=== PATIENT | male | born 1970 | race Caucasian/White ===

== ENCOUNTER 2019-10-30 11:38 | Emergency (ER) | payer BC ==
--- NOTE | 2019-10-31 07:25 | EDPHYS ---
Physician Documentation [facility] Name: Keny Price Age: 49 yrs Sex: Male : 1970 Arrival Date: 10/30/2019 Time: 11:41 Bed 14 Private MD: ED Physician Yassine Rosales HPI: 10/29 12:06 This 49 yrs old Male presents to ER via Ambulatory with complaints of Nose pm1 Bleed. 12:06 The patient presents with a nose bleed, that is apparently posterior, from the left pm1 nare, occurred from an unknown cause, that is continuous causative factors include: possible exposure to dust at baseball field yesterday. Onset: The symptoms/episode began/occurred at 04:00. Modifying factors: The symptoms are alleviated by nothing. the symptoms are aggravated by nothing. Associated signs and symptoms: Loss of consciousness: the patient experienced no loss of consciousness, Pertinent negatives: blurred vision, chest pain, cough, fever, lightheadedness, rhinorrhea, vertigo. Severity of symptoms: in the emergency department the symptoms are unchanged. The patient has been recently seen by a physician: Patient was seen in [place] [facility] early this AM and had rhino packing placed. Patient reports that blood is still trickling down the back of his throat. He contacted his PCP and was instructed to report to the ER for evaluation because they are worried that it might be related to a stroke or aneurysm . Historical: - Allergies: 11:53 No Known Allergies; ll1 - Home Meds: 11:53 None [Active]; ll1 - PMHx: 11:53 None; ll1 - Immunization history:: Adult Immunizations up to date. - Social history:: Smoking status: Patient denies any tobacco usage or history of. ROS: 12:06 Constitutional: Negative for fever, chills, and weight loss, Eyes: Negative for injury, pm1 pain, redness, and discharge. 12:06 Neck: Negative for injury, pain, and swelling, Cardiovascular: Negative for chest pain, palpitations, and edema, Respiratory: Negative for shortness of breath, cough, wheezing, and pleuritic chest pain, Abdomen/GI: Negative for abdominal pain, nausea, vomiting, diarrhea, and constipation, Back: Negative for injury and pain, MS/Extremity: Negative for injury and deformity, Skin: Negative for injury, rash, and discoloration, Neuro: Negative for headache, weakness, numbness, tingling, and seizure. 12:06 ENT: Positive for nose bleed, Negative for drainage from ear(s), ear pain, sore throat, difficulty swallowing, difficulty handling secretions, hoarseness. Exam: 12:06 Constitutional: This is a well developed, well nourished patient who is awake, alert, pm1 and in no acute distress. Head/Face: Normocephalic, atraumatic. 12:06 Neck: Trachea midline, no thyromegaly or masses palpated, and no cervical lymphadenopathy. Supple, full range of motion without nuchal rigidity, or vertebral point tenderness. No Meningismus. 12:06 Skin: Warm, dry with normal turgor. Normal color with no rashes, no lesions, and no evidence of cellulitis. MS/ Extremity: Pulses equal, no cyanosis. Neurovascular intact. Full, normal range of motion. 12:06 ENT: External ear(s): are unremarkable, Ear canal(s): are normal, TM's: are normal, Nose: Nasal mucosa: edematous, bleeding, is not appreciated, is noted from both nares, nasal drainage, is not appreciated, a foreign body, is not appreciated. 12:06 Cardiovascular: Exam negative for acute changes, Rate: normal, Rhythm: regular, Pulses: no pulse deficits are appreciated. 12:06 Respiratory: Exam negative for acute changes, respiratory distress, shortness of breath. 12:06 Neuro: Exam negative for acute changes, Orientation: is normal, Mentation: is normal, Motor: is normal, moves all fours, Sensation: is normal, no obvious gross deficits, Gait: is steady, at a normal pace, without difficulty. Vital Signs: 11:49 BP 132 / 87; Pulse 81; Resp 16; Temp 98.0(O); Pulse Ox 98% on R/A; Weight 97.52 kg; ll1 Height 5 ft. 9 in. (175.26 cm); Pain 0/10; 11:49 Body Mass Index 31.75 (97.52 kg, 175.26 cm) ll1 MDM: 11:52 Patient medically screened. pm1 12:06 ED course: I removed the patient's prior packing and he doesn't feel anymore bleeding pm1 so I will observe him prior to disposition. 12:43 Data reviewed: vital signs. Data interpreted: Pulse oximetry: on room air is 98 %. pm1 Interpretation: normal. Counseling: I had a detailed discussion with the patient and/or guardian regarding: the historical points, exam findings, and any diagnostic results supporting the discharge/admit diagnosis, the need for outpatient follow up, an ENT specialist, to return to the emergency department if symptoms worsen or persist or if there are any questions or concerns that arise at home. 12:46 ED course: Patient's nose bleeding resolved. Patient even sneezed in the ER without any pm1 reoccurrence of bleeding. Administered Medications: No medications were administered Disposition: 12:55 Co-signature as Attending Physician, Yassine Rosales MD. rn Disposition: 10/30/19 12:43 Discharged to Home. Impression: Epistaxis - resolved. - Condition is Stable. - Discharge Instructions: Nosebleed, Adult. - Medication Reconciliation Form, Thank You Letter, Antibiotic Education, Prescription Opioid Use form. - Follow up: Emergency Department; When: As needed; Reason: Worsening of condition. Follow up: Private Physician; When: As needed; Reason: Recheck today's complaints, Continuance of care, Re-evaluation by your physician. - Problem is new. - Symptoms have improved. Signatures: Sera Norwood RN RN iw Yassine Rosales MD MD rn Marinas, Patrick, [employer] pm1 Cristina Devries RN RN ll1 Corrections: (The following items were deleted from the chart) 12:49 12:43 10/30/2019 12:43 Discharged to Home. Impression: Epistaxis - resolved. Condition iw is Stable. Forms are Medication Reconciliation Form, Thank You Letter, Antibiotic Education, Prescription Opioid Use. Follow up: Emergency Department; When: As needed; Reason: Worsening of condition. Follow up: Private Physician; When: As needed; Reason: Recheck today's complaints, Continuance of care, Re-evaluation by your physician. Problem is new. Symptoms have improved. pm1
--- NOTE | 2019-10-31 07:25 | ER ---
Nurse's Notes [facility] Name: Keny Price Age: 49 yrs Sex: Male : 1970 Arrival Date: 10/30/2019 Time: 11:41 Bed 14 Private MD: Diagnosis: Epistaxis-resolved Presentation: 10/29 11:49 Chief complaint: Patient states: Nose bleed that began at 0530 this morning. Pt was ll1 seen at [facility] this morning where a Rhino Rocket was placed to stop the bleeding. Pt reports that the bleeding has slowed down, but it is still actively bleeding. Coronavirus screen: Client denies travel out of the [place] in the last 14 days. At this time, the client does not indicate any symptoms associated with coronavirus-19. Ebola Screen: Patient denies exposure to infectious person. Patient denies travel to an Ebola-affected area in the 21 days before illness onset. Initial Sepsis Screen: Does the patient meet any 2 criteria? No. Patient's initial sepsis screen is negative. Does the patient have a suspected source of infection? No. Patient's initial sepsis screen is negative. Risk Assessment: Do you want to hurt yourself or someone else? Patient reports no desire to harm self or others. Onset of symptoms was October 30, 2019. 11:49 Acuity: CLARENCE 3 ll1 11:49 Method Of Arrival: Ambulatory ll1 Triage Assessment: 12:00 General: Appears in no apparent distress. Behavior is calm, cooperative. iw Historical: - Allergies: 11:53 No Known Allergies; ll1 - Home Meds: 11:53 None [Active]; ll1 - PMHx: 11:53 None; ll1 - Immunization history:: Adult Immunizations up to date. - Social history:: Smoking status: Patient denies any tobacco usage or history of. Screenin:00 Abuse screen: Denies threats or abuse. Denies injuries from another. Nutritional iw screening: No deficits noted. Tuberculosis screening: No symptoms or risk factors identified. Fall Risk None identified. Assessment: 12:00 General: Appears in no apparent distress. comfortable, Behavior is calm, cooperative. iw Pain: Denies pain. Neuro: Level of Consciousness is awake, alert, obeys commands, Oriented to person, place, time, situation, Moves all extremities. Full function. Cardiovascular: Patient's skin is warm and dry. Respiratory: Respiratory effort is even, unlabored, Respiratory pattern is regular, symmetrical. Derm: Skin is intact, is healthy with good turgor. Musculoskeletal: Range of motion: intact in all extremities. Vital Signs: 11:49 BP 132 / 87; Pulse 81; Resp 16; Temp 98.0(O); Pulse Ox 98% on R/A; Weight 97.52 kg; ll1 Height 5 ft. 9 in. (175.26 cm); Pain 0/10; 11:49 Body Mass Index 31.75 (97.52 kg, 175.26 cm) ll1 ED Course: 11:41 Patient arrived in ED. ds1 11:49 Sera Norwood, KENROY is Primary Nurse. iw 11:51 Joaquín Campos NP is PHCP. pm1 11:51 Yassine Rosales MD is Attending Physician. pm1 11:51 Triage completed. ll1 11:53 Arm band placed on right wrist. ll1 12:00 Patient has correct armband on for positive identification. iw 12:48 No provider procedures requiring assistance completed. Patient did not have IV access iw during this emergency room visit. Administered Medications: No medications were administered Outcome: 12:43 Discharge ordered by MD. pm1 12:48 Discharged to home ambulatory. iw 12:48 Condition: good 12:48 Discharge instructions given to patient, Instructed on discharge instructions, follow up and referral plans. Demonstrated understanding of instructions, follow-up care. 12:49 Patient left the ED. iw Signatures: Deanna Sloan ds1 Sera Norwood RN RN iw Joaquín Campos NP SUBSTANCE ABUSE CLINICIAN pm1 Cristina Devries RN RN 1
[2019-10-31 08:08] VITALS: BP 132/87; TEMP 98; O2SAT 98
== END 2019-10-30 12:49 | disposition home or self-care (01) ==
LOC: ER 11:38
DX: R04.0 Epistaxis (principal)
CPT/HCPCS: 99281